=== PATIENT | female | born 1985 | race African-American/Black ===

== ENCOUNTER 2017-01-22 12:44 | Inpatient (IN) ==
[2017-01-22] MEDS ORDERED: ONDANSETRON 4 MG/2 ML VIAL IV PRN (13:12)
[2017-01-22 13:22] LABS: Eosinophils % 0.1 % (0.00-10.9); Hematocrit 34.4 VOL% (35.7-47.0); Hemoglobin 11.4 GM/DL (12.0-16.0); Immature Granulocytes % 0.5 %; Immature Granulocytes Absolute 0.04 #; Lymphocytes # 2.1 10*3/uL (1.4-4.0); Mean Corpuscular HGB Conc 33.1 GM/DL (32-36); Mean Corpuscular Hemoglobin 24 PG (27-34); Mean Corpuscular Volume 73.7 FL (87-102); Mean Platelet Volume 11.5 FL (9.6-12.0); Monocytes # 0.4 10*3/uL (0.11-0.8); Monocytes % 5.5 % (1.7-12.7); Neutrophils # 5.5 10*3/uL (1.4-7.4); Neutrophils % 67.9 % (38.7-73.9); Platelet Count 180 T/CUMM (130-400); Red Blood Count 4.67 MC/CUMM (3.8-5.5)
[2017-01-22] MEDS ORDERED: OXYTOCIN/LR 20 UNIT/1,000 ML BAG IV SCH (13:30)
[2017-01-22 13:51] LABS: Albumin 2.6 G/DL (3.4-5.0); Bilirubin,Total 0.4 MG/DL (0.2-1.0); Calcium 9.3 MG/DL (8.5-10.1); Osmolality,Calculated 273.7 MOS/KG (273-304); Potassium 3.5 MMOL/L (3.5-5.1); Total Protein 7.3 G/DL (6.4-8.3); Uric Acid 4.6 MG/DL (2.6-6.0)
[2017-01-22] MEDS: LACTATED RINGERS 1,000 ML IV SCH ×2 (13:56→17:56)
--- NOTE | 2017-01-22 13:59 | OB/GYN History & Physical ---
History of Present Illness Chief complaint: Sent from clinic for labor management and uncontrolled chronic HTN History of present illness: Ms. Owusu is a 31 year old female that is a with an EDC of 02/06/17 per 11.3 wks US with EGA @ 37.6 wks. She receives care at [facility] with Chante Vargas CNM, [place]. Records are current, up to date and has been reviewed. She was sent from the clinic secondary to advanced dilation and elevated blood pressures. She has a history of chronic hypertension and "have not taken those blood pressure pills in months". She denies any blurred vision, dizziness, headaches, epigastric pain, or pressure. C/O some irregular contractions. Labs: Blood type A positive; Rubella non reactive; HBsAg negative; HIV negative ; VDRL- non reactive; Vitamin D 15.8; UDS negative; Sickle Cell Screen negative ; Diabetic Screen 96; Antibody Screen negative; GBS pending. Home Medications Medication Instructions Recorded Confirmed Type Multivitamin () [ 1 tablet PO DAILY 01/19/17 01/22/17 History Vitamin] Allergies Allergy/AdvReac Type Severity Reaction Status Date / Time No Known Allergies Allergy Verified 01/19/17 14:11 12 point system: reviewed and no additional remarkable complaints except as stated Medical,Surgical,& Family Hx - Medical History Cardio: History of: Hypertension (with preg) - Surgical History Surgical History: noncontributory - Family History Family History: Reports;: Family Hypertension - Social History Smoking Status: Never smoker Exam RO[employer]OR [employer] - Constitutional General appearance: no acute distress, over weight - Antepartum / Post Antepartum Exam Cervix - Dilatation: 5 cm Effacement: 80% Station: 0 Rupture: AROm with amniohook- clear fluid noted. IUPC inserted without difficulty Presentation: vertex Heart Rate: 120s with spontaneous accelerations, no decelerations noted [place]: irregular/ 50-60 sec/ mild Breast: bilateral: normal Abdomen obstetrics: Present: bowel sounds normal Vagina: Present: normal moisture Uterus exam: Present: enlarged (gravid, uterine tonus soft, EFW 7.5-8 pounds) Adnexa: bilateral: normal Anus/Rectum: Present: normal perianal skin - Head Head exam: Present: normal inspection - Eye Pupils: Present: normal accommodation - ENT ENT exam: Present: normal exam - Respiratory Respiratory exam: Present: clear to auscultation bilaterally - Cardiovascular Cardiovascular exam: Present: regular rate and rhythm - GI/Abdominal GI/Abdominal exam: Present: normal bowel sounds - Extremities Exam Extremities exam: Present: normal inspection, normal capillary refill, full ROM - Back Exam Back exam: Present: normal inspection - Neurological Exam Neurological exam: Present: alert, oriented X3, normal gait - Psychiatric Psychiatric exam: Present: normal affect, normal mood - Skin Skin exam: Present: normal color, warm, dry Assessment and Plan (1) History of chronic hypertension Status: Acute Current Visit: Yes (2) Obesity (BMI 35.0-39.9 without comorbidity) Status: Acute Current Visit: Yes (3) Obesity (BMI 30-39.9) Status: Acute Current Visit: Yes Results - Labs CBC & BMP: 01/22/17 13:17 Labs: Laboratory Results - last 72 hr 01/22/17 01/22/17 13:17 13:17 WBC 8.0 RBC 4.67 Hgb 11.4 L Hct 34.4 L MCV 73.7 L MCH 24 L MCHC 33.1 RDW 17.0 Plt Count 180 MPV 11.5 Neut % (Auto) 67.9 Lymph % (Auto) 26.0 Andrew % (Auto) 5.5 Eos % (Auto) 0.1 Baso % (Auto) 0.0 Neut # (Auto) 5.5 Lymph # (Auto) 2.1 Andrew # (Auto) 0.4 Eos # (Auto) 0.0 Baso # (Auto) 0.0 Immature Gran % 0.5 Nucleated RBC % 0.0 Immature Gran # 0.04 Nucleated RBCs # 0.00 Immature Plt Fraction 0.0 Sodium 138 Potassium 3.5 Chloride 107 Carbon Dioxide 23 Anion Gap 11.5 BUN 8 Creatinine 0.70 GFR Calculation 158 BUN/Creatinine Ratio 11.00 Glucose 108 H Calculated Osmolality 273.7 Uric Acid 4.6 Calcium 9.3 Total Bilirubin 0.40 AST 148 H ALT 354 H Alkaline Phosphatase 128 H Total Protein 7.3 Albumin 2.6 L Globulin 4.7 H Albumin/Globulin Ratio 0.5 L
[2017-01-22] MEDS ORDERED: AMPICILLIN INJ 2,000 MG in SODIUM CHLORIDE 0.9% 100 ML IV ONE (15:35)
[2017-01-22] MEDS ORDERED: MEPERIDINE 50 MG/1 ML VIAL IV PRN (18:05)
[2017-01-22] MEDS ORDERED: BUTORPHANOL 2 MG/ML VIAL IV PRN (18:05)
--- NOTE | 2017-01-22 18:37 | OB/GYN Progress Note ---
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 Anticipate vaginal delivery. Reposition for comfort. Questions answered to desired level of satisfaction. Results - Labs CBC & BMP: 01/22/17 13:17 01/22/17 13:17
[2017-01-22] MEDS ORDERED: miSOPROStol 200 MCG TABLET ONE (19:17)
[2017-01-22] MEDS ORDERED: CITRIC ACID/SODIUM CITRATE 30 ML UDCUP ONE (19:18)
[2017-01-22] MEDS ORDERED: fentaNYL 2 MCG/ROPIV 0.2% EPID 0 ML EPIDURAL ONE (19:19)
[2017-01-22] MEDS ORDERED: ePHEDrine 50 MG/ML AMP ONE (19:19)
--- NOTE | 2017-01-22 20:07 | Operative Note ---
Date of procedure: 01/22/17 Pre-op diagnosis: IUP @ 37.6 wks, Labor, H/O Chronic HTN Post-op diagnosis: other () Procedure: Patient received right-sided lateral position and transferred to dorsal lithotomy position. Patient was draped and prepped. At 1940, head delivered in KRISHNA position under an epidural anesthetic with minimal relief noted. Anterior then posterior shoulders were delivered easily without difficulty. delivered in usual fashion and secured. Mouth and nose bulb suctioned. placed on mother's abdomen. Delayed cord clamping was performed. Cord doubly clamped and allowed to be cut by male significant other at the bedside. At 1948, spontaneous delivery of placenta via Izzy position, with 3 vessel cord noted, normal cord insertion, with moderate calcifications, large fatty tissue noted in placenta. Hemostasis maintained with fundal massage and Pitocin 20 units in 1000 cc of lactated Ringer's. Perineum inspected with no lacerations noted, intact. Male with Apgars 9 and 9 with weight pending. Mother and baby are stable. Mother desires to breast and bottlefeeding. Baby presently scan to scan at the time of dictation. Anesthesia: epidural Surgeon / Physician: Chante Vargas Estimated blood loss: minimal (100 cc) Specimens: other (Placenta to pathology secondary to moderate calcifications and large fatty pocket of tissue, history of chronic hypertension) Condition: stable Disposition: floor Results - Labs CBC & BMP: 01/22/17 13:17 01/22/17 13:17 Discharge Plan - Discharge Medications No Action Multivitamin () [ Vitamin] 1 tablet PO DAILY - Follow Up or Referral - Forms/Instructions
[2017-01-22] MEDS ORDERED: RHO(D) IMMUNE GLOBULIN 300 MCG SYRINGE IM ONE (20:09)
[2017-01-22] MEDS ORDERED: WITCH HAZEL PADS 100/JAR TOP PRN (20:09)
[2017-01-22] MEDS ORDERED: DIPH/TET/ACEL PERT BOOSTER VACCINE 0.5 ML VIAL IM ONE (20:09)
[2017-01-22] MEDS ORDERED: MEASLES/MUMPS/RUBELLA VACCINE 0.5 ML VIAL SUBCUT ONE (20:09)
[2017-01-22] MEDS ORDERED: oxyCODONE/ACETAMINOPHEN 5-325 MG TABLET PO PRN ×2 (20:09)
[2017-01-22] MEDS ORDERED: LANOLIN 50% CREAM 0.3 OZ TUBE TOP PRN (20:09)
[2017-01-22] MEDS ORDERED: HYDROCORTISONE 2.5% RECTAL CREAM 30 GM TUBE TOP PRN (20:09)
[2017-01-22] MEDS ORDERED: ACETAMINOPHEN 325 MG TABLET PO PRN (20:09)
[2017-01-22] MEDS ORDERED: BISACODYL 10 MG SUPP RECTAL PRN (20:09)
[2017-01-22] MEDS ORDERED: OXYTOCIN/LR 20 UNIT/1,000 ML BAG IV ONE (20:09)
[2017-01-22] MEDS ORDERED: BENZOCAINE 20%/MENTHOL 0.5% SPRAY 56 GM CAN TOP PRN (20:09)
[2017-01-22] MEDS: IBUPROFEN 800 MG TABLET PO PRN (21:38)
[2017-01-22] MEDS: DOCUSATE SODIUM 100 MG CAPSULE PO SCH (23:50)
[2017-01-23 06:37] LABS: Basophils % 0.2 % (0.0-0.8); Eosinophils % 0.3 % (0.00-10.9); Hematocrit 30.7 VOL% (35.7-47.0); Immature Granulocytes % 0.4 %; Immature Granulocytes Absolute 0.04 #; Lymphocytes # 1.6 10*3/uL (1.4-4.0); Lymphocytes % 16.6 % (21.3-54.2); Mean Corpuscular HGB Conc 32.6 GM/DL (32-36); Mean Corpuscular Hemoglobin 24 PG (27-34); Mean Platelet Volume 12.5 FL (9.6-12.0); Monocytes # 0.9 10*3/uL (0.11-0.8); Neutrophils # 7.1 10*3/uL (1.4-7.4); Neutrophils % 73.5 % (38.7-73.9); Platelet Count 171 T/CUMM (130-400); Red Blood Count 4.15 MC/CUMM (3.8-5.5); Red Cell Distribution Width 16.8 % (9.3-17.3); White Blood Count 9.7 T/CUMM (4-12)
[2017-01-23] MEDS: IBUPROFEN 800 MG TABLET PO PRN (08:15)
[2017-01-23] MEDS ORDERED: MULTIVITAMIN (PRENATAL) TABLET PO SCH (09:00)
--- NOTE | 2017-01-23 09:25 | Discharge Summary ---
Hospital Course - Hospital Course Hospital Course: Patient is a 31-year-old now 5 para 3023 that presented at 37.6 weeks gestation for labor management and history of chronic hypertension with elevated blood pressures at the clinic. Her PIH labs were fine with the exception of elevated AST at 148 and ALT at 354. Labor progressed under an epidural anesthetic for patient to deliver a female weighing 6 lbs. 2 oz. with Apgars 9 and 9 over an intact perineum. She has been stable and baby has been stable. She will be discharged home in the morning if she is stable. Her blood pressures have been labile at 140s over 60s-70s. We will continue to monitor and she will follow-up with me in clinic. Diagnosis - Discharge Diagnosis (1) History of chronic hypertension Status: Acute (2) Obesity (BMI 30-39.9) Status: Acute (3) (normal spontaneous vaginal delivery) Status: Resolved (4) Anemia Status: Acute Discharge Plan - Discharge Data Disposition: Disch To Home/Self Care Condition at Discharge: Stable Discharge Diet: advance to your usual diet Activity: resume usual activities as tolerated Hygiene: may shower Weight Bearing at Discharge: full weight bearing Driving: not for (2 weeks) Contact your physician if you experience:: fever over 101, Difficulty voiding, Redness or swelling, Nausea/Vomiting, Shortness of breath, Bleeding, pain uncontrolled by pain medications - Discharge Medications New Ibuprofen Tab [Motrin Tab] 800 mg PO Q8H PRN #90 tablet PRN Reason: Pain Moderate (4-7) Iron (Carbonyl)/Vit C/B12/FA [Icar C Plus] 1 tablet PO DAILY #30 tablet No Action Multivitamin () [ Vitamin] 1 tablet PO DAILY - Follow Up or Referral Follow Up: Chante Vargas CFNP [Advanced Practice Nurse] - 2 Weeks - Forms/Instructions Exam - Constitutional Vitals: Period Temp Pulse Resp BP Sys/[place] Pulse Ox Last 24 Hr 97.0 F-98.2 F 59-89 18-19 123-155/60-78 General appearance: no acute distress - Head Head exam: Present: normal inspection - Eye Eye exam: Present: EOMI Pupils: Present: normal accommodation - ENT ENT exam: Present: normal exam - Neck Neck exam: Present: normal inspection - Respiratory Respiratory exam: Present: clear to auscultation bilaterally - Cardiovascular Cardiovascular exam: Present: regular rate and rhythm - GI/Abdominal GI/Abdominal exam: Present: normal bowel sounds, other (Uterus firm, midline, 2 fingerbreadths below the umbilicus. Moderate amount of rubra noted on perineal pad bleeding minimal.) - Extremities Exam Extremities exam: Present: normal inspection, normal capillary refill, full ROM - Back Exam Back exam: Present: normal inspection - Neurological Exam Neurological exam: Present: alert, oriented X3, normal gait - Psychiatric Psychiatric exam: Present: normal affect, normal mood - Skin Skin exam: Present: normal color, warm, dry Discharge Results Procedures and tests throughout hospitalization: Laboratory Tests 01/22/17 01/22/17 01/22/17 13:17 13:17 13:17 WBC 8.0 RBC 4.67 Hgb 11.4 L Hct 34.4 L MCV 73.7 L MCH 24 L MCHC 33.1 RDW 17.0 Plt Count 180 MPV 11.5 Neut % (Auto) 67.9 Lymph % (Auto) 26.0 Wise % (Auto) 5.5 Eos % (Auto) 0.1 Baso % (Auto) 0.0 Neut # (Auto) 5.5 Lymph # (Auto) 2.1 Wise # (Auto) 0.4 Eos # (Auto) 0.0 Baso # (Auto) 0.0 Immature Gran % 0.5 Nucleated RBC % 0.0 Immature Gran # 0.04 Nucleated RBCs # 0.00 Immature Plt Fraction 0.0 Sodium 138 Potassium 3.5 Chloride 107 Carbon Dioxide 23 Anion Gap 11.5 BUN 8 Creatinine 0.70 GFR Calculation 158 BUN/Creatinine Ratio 11.00 Glucose 108 H Calculated Osmolality 273.7 Uric Acid 4.6 Calcium 9.3 Total Bilirubin 0.40 AST 148 H ALT 354 H Alkaline Phosphatase 128 H Total Protein 7.3 Albumin 2.6 L Globulin 4.7 H Albumin/Globulin Ratio 0.5 L Treponema pallidum IgG Blood Type A POSITIVE Antibody Screen Negative 01/22/17 01/23/17 13:17 06:05 WBC 9.7 RBC 4.15 Hgb 10.0 L Hct 30.7 L MCV 74.0 L MCH 24 L MCHC 32.6 RDW 16.8 Plt Count 171 MPV 12.5 H Neut % (Auto) 73.5 Lymph % (Auto) 16.6 L Wise % (Auto) 9.0 Eos % (Auto) 0.3 Baso % (Auto) 0.2 Neut # (Auto) 7.1 Lymph # (Auto) 1.6 Wise # (Auto) 0.9 H Eos # (Auto) 0.0 Baso # (Auto) 0.0 Immature Gran % 0.4 Nucleated RBC % 0.0 Immature Gran # 0.04 Nucleated RBCs # 0.00 Immature Plt Fraction 0.0 Sodium Potassium Chloride Carbon Dioxide Anion Gap BUN Creatinine GFR Calculation BUN/Creatinine Ratio Glucose Calculated Osmolality Uric Acid Calcium Total Bilirubin AST ALT Alkaline Phosphatase Total Protein Albumin Globulin Albumin/Globulin Ratio Treponema pallidum IgG Nonreactive Blood Type Antibody Screen Labs on day of discharge: Labs from last 24 hours 01/23/17 01/22/17 01/22/17 06:05 13:17 13:17 WBC 9.7 RBC 4.15 Hgb 10.0 L Hct 30.7 L MCV 74.0 L MCH 24 L MCHC 32.6 RDW 16.8 Plt Count 171 MPV 12.5 H Neut % (Auto) 73.5 Lymph % (Auto) 16.6 L Wise % (Auto) 9.0 Eos % (Auto) 0.3 Baso % (Auto) 0.2 Neut # (Auto) 7.1 Lymph # (Auto) 1.6 Wise # (Auto) 0.9 H Eos # (Auto) 0.0 Baso # (Auto) 0.0 Immature Gran % 0.4 Nucleated RBC % 0.0 Immature Gran # 0.04 Nucleated RBCs # 0.00 Immature Plt Fraction 0.0 Sodium 138 Potassium 3.5 Chloride 107 Carbon Dioxide 23 Anion Gap 11.5 BUN 8 Creatinine 0.70 GFR Calculation 158 BUN/Creatinine Ratio 11.00 Glucose 108 H Calculated Osmolality 273.7 Uric Acid 4.6 Calcium 9.3 Total Bilirubin 0.40 AST 148 H ALT 354 H Alkaline Phosphatase 128 H Total Protein 7.3 Albumin 2.6 L Globulin 4.7 H Albumin/Globulin Ratio 0.5 L Treponema pallidum IgG Nonreactive Blood Type Antibody Screen 01/22/17 01/22/17 13:17 13:17 WBC 8.0 RBC 4.67 Hgb 11.4 L Hct 34.4 L MCV 73.7 L MCH 24 L MCHC 33.1 RDW 17.0 Plt Count 180 MPV 11.5 Neut % (Auto) 67.9 Lymph % (Auto) 26.0 Wise % (Auto) 5.5 Eos % (Auto) 0.1 Baso % (Auto) 0.0 Neut # (Auto) 5.5 Lymph # (Auto) 2.1 Wise # (Auto) 0.4 Eos # (Auto) 0.0 Baso # (Auto) 0.0 Immature Gran % 0.5 Nucleated RBC % 0.0 Immature Gran # 0.04 Nucleated RBCs # 0.00 Immature Plt Fraction 0.0 Sodium Potassium Chloride Carbon Dioxide Anion Gap BUN Creatinine GFR Calculation BUN/Creatinine Ratio Glucose Calculated Osmolality Uric Acid Calcium Total Bilirubin AST ALT Alkaline Phosphatase Total Protein Albumin Globulin Albumin/Globulin Ratio Treponema pallidum IgG Blood Type A POSITIVE Antibody Screen Negative DS: Provider Date of admission: 01/22/17 13:12 Primary care physician: . No PCP Attending physician on admission: Omar Massey DO Consults: 01/22/17 15:18 Consult to Dietitian [CONS] Routine Reason for Dietitian: Dietary Consult 01/22/17 20:09 Consult to Photostatic Copy Maker [CONS] Routine Consult Photostatic Copy Maker: Breast Feeding Discharging clinician: CHARO Monteiro
[2017-01-23] MEDS: DOCUSATE SODIUM 100 MG CAPSULE PO SCH ×2 (10:13→21:19)
[2017-01-24] MEDS: IBUPROFEN 800 MG TABLET PO PRN (05:15)
[2017-01-24 07:32] VITALS: BP 144/78
[2017-01-24] MEDS: DOCUSATE SODIUM 100 MG CAPSULE PO SCH (08:32)
--- NOTE | 2017-01-26 11:20 | Pathology Report from [facility] ---
[employer] ACCESSION # : [id number] PATIENT NAME : Dago Owusu ORDERING DR : PIERCE GALLOWAY DO CLINICAL HX: IUP @ 37.6 wks, chronic HTN POST-OP DX: Same SPECIMEN INFO: Placenta GROSS DESCRIPTION: Received fresh labeled DAGO OWUSU & PLACENTA is a 467 gm placenta measuring 15.2 x 16.5 x 3 cm. The membranes are opaque pink barnard. The umbilical cord is centrally inserted, contains three vessels and measures 31.6 cm. The surface is blue pink fallon and is circumarginate with a few areas of subchorionic fibrin present measuring up to 2 cm. The maternal surface is beefy red with adherent clotted blood and a large area of fibrosis measuring up to 4 cm. Scattered calcifications are noted. The cotyledons are moderately to markedly disrupted. No other gross abnormalities are seen on sectioning. Sections submitted A- membranes and cord, B- and maternal surfaces. DIAGNOSIS FOR DAGO OWUSU: Three vessel umbilical cord.Unremarkable placental membranes.Circumarginate placenta with third trimester placental chorionic villi showing intravillous arterial wall thickening and focal infarction c/w hypertensive arteriopathy. COLLECTED DATE: 01/23/2017 [facility] REPORT DATE: 01/26/2017 ELECTRONICALLY SIGNED BY: Raymond Virgen M.D. 01/26/2017 - 10:05:08 [place]
== END 2017-01-24 11:55 | disposition home or self-care (01) | DRG 774 ==
LOC: N.LDOUT 12:44 → N.LD 12:50 → N.OB 01-23 09:25
PROVIDERS: ADMIT Obstetrics & Gynecology; ATTEND Obstetrics & Gynecology